=== PATIENT | female | born 1985 | race Hispanic/Latino ===

== ENCOUNTER → 2022-02-16 | Outpatient (CLI) | payer MEDICARE | END | disposition home or self-care (01) | LOC: RAH 08:32 | PROVIDERS: ATTEND Internal Medicine Gastroenterology | DX: R93.3 Abnormal findings on diagnostic imaging of other parts of digestive tract (principal); R10.84 Generalized abdominal pain; K21.9 Gastro-esophageal reflux disease without esophagitis | CPT/HCPCS: 74240 ==

== ENCOUNTER → 2023-03-20 | Outpatient (CLI) | payer MEDICARE | END | disposition home or self-care (01) | LOC: RAH 08:54 | PROVIDERS: ATTEND Internal Medicine Gastroenterology | DX: R93.3 Abnormal findings on diagnostic imaging of other parts of digestive tract (principal); K44.9 Diaphragmatic hernia without obstruction or gangrene | CPT/HCPCS: 74240 ==

== ENCOUNTER → 2023-04-28 | Outpatient (CLI) | payer MEDICARE ==
[~2023-04-28] MED LIST: IOHEXOL 350 MG/ML 100ML INFUS..BTL IV ONE
== END | disposition home or self-care (01) ==
LOC: RAH 09:44
PROVIDERS: ATTEND Internal Medicine Gastroenterology
DX: K44.9 Diaphragmatic hernia without obstruction or gangrene (principal); R93.3 Abnormal findings on diagnostic imaging of other parts of digestive tract; M47.815 Spondylosis without myelopathy or radiculopathy, thoracolumbar region
CPT/HCPCS: 74170; 71270; Q9967

== ENCOUNTER 2023-07-27 07:55 | Observation (INO) | payer MEDICARE ==
[2023-07-25 13:26] VITALS: BP 113/63; PULSE 69; RESP 19
[2023-07-25 13:38] LABS: BASOPHILS # (AUTO) 0.02 K/uL (0.00-0.20); BASOPHILS % (AUTO) 0.4 % (0.0-5.0); EOSINOPHILS # (AUTO) 0.09 K/uL (0.00-0.70); EOSINOPHILS % (AUTO) 1.9 % (0.0-8.0); HEMATOCRIT 41.7 % (36-48); IMMATURE GRANULOCYTE ABSOLUTE 0.02 K/uL (0-1); LYMPHOCYTES # (AUTO) 1.4 K/uL (1.0-4.8); LYMPHOCYTES % (AUTO) 29.7 % (21.0-51.0); MEAN CORPUSCULAR HEMOGLOBIN 30.6 pg (27.0-33.0); MEAN CORPUSCULAR HGB CONC 32.9 g/dL (32.0-36.0); MEAN CORPUSCULAR VOLUME 93.1 fL (79-99); MONOCYTES # (AUTO) 0.5 K/uL (0.1-1.0); MONOCYTES % (AUTO) 10.8 % (3.0-13.0); NEUTROPHILS # (AUTO) 2.7 K/uL (1.8-7.7); NEUTROPHILS % (AUTO) 56.8 % (40.0-77.0); PLATELET COUNT (AUTO) 195 K/uL (130-400); RED BLOOD CELL COUNT(AUTO) 4.48 MIL/uL (4.00-5.50); RED CELL DISTRIBUTION WIDTH 12.7 % (11.0-15.5); WHITE BLOOD COUNT (AUTO) 4.8 K/uL (4.8-10.8)
[2023-07-25 13:52] LABS: CREATININE 0.7 mg/dL (0.5-1.5); POTASSIUM 3.6 mmol/L (3.5-5.1)
[2023-07-27] VITALS (31 sets, daily range): BP systolic 105–138; BP diastolic 61–82; PULSE 79–97; RESP 14–20; O2SAT 96–99
[~2023-07-27] VITALS: Ht 154.9 cm; Wt 77.0 kg
[~2023-07-27 07:55] MED LIST changes: +BENZ2TAB70 PO; +DIVA500T69 PO; +FERR-72 PO; -IOHEXOL 350 MG/ML 100ML INFUS..BTL IV ONE; +LEVO112C4 PO; +LINA72CA PO; +PANT40TA54 PO; +RISP2TAB86 PO; +ROSU10TA28 PO; +SERT-440 PO; +TRAZ150T79 PO; +VENL-191 PO; +ZONI100C87 PO
[2023-07-27] MEDS ORDERED: LACTATED RINGERS 1000ML 1,000 ML IV ONE (07:59)
[2023-07-27] MEDS ORDERED: CEFAZOLIN SODIUM 2 GM VIAL ONE (07:59)
[2023-07-27] MEDS ORDERED: PROPOFOL 10 MG/ML 20ML VIAL IV ONE (08:16)
[2023-07-27] MEDS ORDERED: MIDAZOLAM HCL 1 MG/ML 2ML VIAL ONE (08:16)
[2023-07-27] MEDS ORDERED: LIDOCAINE PF 100MG/5ML (2%) SYRINGE 5ML ONE (08:16)
[2023-07-27] MEDS ORDERED: FENTANYL CITRATE PF 50 MCG/1 ML 2ML VIAL ONE ×2 (08:17→09:33)
[2023-07-27] MEDS ORDERED: PHENYLEPHRINE HCL 10 MG/ML 1ML VIAL IV ONE (08:17)
[2023-07-27] MEDS ORDERED: ROCURONIUM BROMIDE 10MG/1ML 5ML VL ONE ×2 (08:17→10:15)
[2023-07-27] MEDS ORDERED: BUPIVACAINE/PF 0.5% 30ML VIAL ONE (08:22)
[2023-07-27] MEDS ORDERED: BUPIVACAINE/PF 0.5% 10ML VIAL ONE (08:22)
[2023-07-27] MEDS ORDERED: INDOCYANINE GREEN 25 MG VIAL IJ ONE (08:24)
[2023-07-27] MEDS ORDERED: BUPIVACAINE/PF 0.5% 30ML VIAL INJ ONE (08:42)
[2023-07-27] MEDS ORDERED: CEFAZOLIN SODIUM 2 GM VIAL IVPB ONE (08:51)
[2023-07-27] MEDS ORDERED: ONDANSETRON 4MG INJ ONE ×2 (09:09→12:01)
[2023-07-27] MEDS ORDERED: DEXAMETHASONE SOD PHOSPHATE 4 MG/ML 1ML VIAL ONE (09:09)
[2023-07-27] MEDS ORDERED: KETOROLAC 30MG VIAL (30MG/ML) ONE ×2 (09:09→10:37)
[2023-07-27] MEDS ORDERED: NEOSTIGMINE METHYLSULFATE 1MG/ML IV ONE (10:43)
[2023-07-27] MEDS ORDERED: GLYCOPYRROLATE 0.2 MG/ML 5 ML VIAL ONE (10:43)
[2023-07-27] MEDS ORDERED: MEPERIDINE-PF 25 MG/ML SYG ONE (12:01)
[2023-07-27] MEDS ORDERED: HYDROMORPHONE 1 MG INJ IVP PRN (12:30)
[2023-07-27] MEDS ORDERED: ONDANSETRON 4MG INJ IVP PRN (12:30)
[2023-07-27] MEDS ORDERED: KETOROLAC 30MG VIAL (30MG/ML) IV PRN (12:30)
[2023-07-27] MEDS ORDERED: HYDROCODONE/ACETAMINOPHEN 7.5/325 MG 15 ML UDCUP PO PRN (12:30)
[2023-07-27] MEDS ORDERED: PROCHLORPERAZINE 10MG/2ML INJ IV PRN (12:30)
[2023-07-27] MEDS: LACTATED RINGERS 1000ML 1,000 ML IV SCH ×2 (15:52→21:24)
[2023-07-27] MEDS: ENOXAPARIN SODIUM 30 MG/0.3 ML SQ SCH (15:52)
[2023-07-27] MEDS ORDERED: DIVALPROEX SODIUM 250 MG TABLET.DR PO SCH (21:00)
[2023-07-27] MEDS ORDERED: TRAZODONE HCL 100 MG TABLET PO SCH (21:00)
[2023-07-27] MEDS ORDERED: ATORVASTATIN 20 MG TABLET PO SCH (21:00)
[2023-07-27] MEDS ORDERED: FERROUS SULFATE 325 MG TABLET.DR PO SCH (21:00)
[2023-07-27] MEDS: ZONISAMIDE 100 MG CAP PO SCH (21:25)
[2023-07-27] MEDS: BENZTROPINE 0.5MG TAB PO SCH (21:26)
[2023-07-27] MEDS: RISPERIDONE 1 MG TABLET PO SCH (21:26)
[2023-07-28] VITALS: BP 118/70; PULSE 84; RESP 18
[2023-07-28] MEDS: ENOXAPARIN SODIUM 30 MG/0.3 ML SQ SCH ×2 (01:45→12:40)
[2023-07-28] MEDS: LACTATED RINGERS 1000ML 1,000 ML IV SCH ×3 (03:54→16:11)
[2023-07-28 04:00] VITALS: BP 98/58; PULSE 89; RESP 18
[2023-07-28] MEDS ORDERED: LEVOTHYROXINE 112 MCG TABLET PO SCH (06:30)
[2023-07-28 08:00] VITALS: BP 99/76; PULSE 64; RESP 17; O2SAT 95
[2023-07-28] MEDS ORDERED: VENLAFAXINE HCL XR 37.5 MG CAP PO SCH (09:00)
[2023-07-28] MEDS ORDERED: SERTRALINE HCL 50 MG TABLET PO SCH (09:00)
[2023-07-28] MEDS ORDERED: LINACLOTIDE 72 MCG PO SCH ×2 (09:00)
[2023-07-28] MEDS ORDERED: PANTOPRAZOLE 40 MG/VIAL IVP SCH (09:00)
[2023-07-28] MEDS: RISPERIDONE 1 MG TABLET PO SCH (09:55)
[2023-07-28] MEDS: ZONISAMIDE 100 MG CAP PO SCH (09:55)
[2023-07-28] MEDS: BENZTROPINE 0.5MG TAB PO SCH (09:55)
[2023-07-28 12:00] VITALS: BP 114/83; PULSE 82; RESP 18
[2023-07-28 16:00] VITALS: BP 122/80; PULSE 79; RESP 18
== END 2023-07-28 18:45 | disposition home or self-care (01) ==
LOC: DAH 07:55 → INTOOBSV 07:56 → DAHIP 07:56 → DAH 07:56 → DAHIP 07:56 → UNDOADMOB 07:56 → 4AH 14:00 → DAHIP 14:00 → UNDODISOB 07-28 18:45
PROVIDERS: ADMIT Surgery; ATTEND Surgery
DX: K44.0 Diaphragmatic hernia with obstruction, without gangrene (principal); K31.A11 Gastric intestinal metaplasia without dysplasia, involving the antrum; K21.9 Gastro-esophageal reflux disease without esophagitis; E78.5 Hyperlipidemia, unspecified; F41.9 Anxiety disorder, unspecified; E03.9 Hypothyroidism, unspecified; F32.A Depression, unspecified
CPT/HCPCS: 80048; 84703; 85025; 86850; 86900; 86901; 36415; 93005; 96374; 96372 ×2; 43282; 96375; 97161; 97116; A6260; J1100; A4600; A4663; J7030; A4215 ×2; J7120; J3010 ×2; J0665 ×3; J3490 ×3; J2001; J1650 ×3; J2250; J2704; J2405 ×2; J1885 ×3; J2710; J2175; J2371; J0690 ×2; G0168; C1781; A4930; A4223; A4222; A4221; G0378 ×2; C9113; 43235